=== PATIENT | female | born 1980 | race Caucasian/White ===

== ENCOUNTER 2019-04-14 20:17 | Emergency (ER) | payer OTHER ==
--- NOTE | 2019-04-14 20:27 | EDM.PDOC ---
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 She had an in office ultrasound which she says documented the gestational sac at 3-4 weeks age rather than the 9 weeks per her last periods and there was some concern about the not progressing normally. She says she was having spotting of blood at that time and over the last 2 days has had which she defines as a regular flow of bleeding similar to her. Using 3-4 pads a day. Today the cramping increased which is diffuse in the pelvis and she has used 8 pads and is passing more blood than usual. She is concerned and is here for evaluation. She has had some diarrhea today but no vomiting and has had no urinary complaints. She has no chest pain shortness of breath dizziness or lightheadedness. The patient was seen yesterday at [facility] and had blood work done here which I reviewed. Her blood type is A+ her progesterone was 7.32 and her serum quantitative hCG was 3474. The patient was called about these results and was started on progesterone due to the low progesterone level. The patient says that her cervix was closed yesterday on evaluation Review of systems: As per history of present illness and below otherwise all systems reviewed and negative. Past medical history: As per history of present illness and as reviewed below otherwise noncontributory. Surgical history: As per history of present illness and as reviewed below otherwise noncontributory. Social history: No reported history of drug or alcohol abuse. Family history: As per history of present illness and as reviewed below otherwise noncontributory. Physical exam: General well-developed well-nourished nontoxic female whose vital signs are noted by me and seems somewhat anxious in the room and nervous. HEENT: Atraumatic, normocephalic, pupils reactive, negative for conjunctival pallor or scleral icterus, mucous membranes moist, throat clear, neck supple, nontender, trachea midline. Lungs: Clear to auscultation, breath sounds equal bilaterally, chest nontender. Heart: S1S2, regular rate and rhythm no overt murmurs Abdomen: Soft, nondistended, mild diffuse lower abdominal/pelvic tenderness without rebound or guarding Negative for masses or hepatosplenomegaly. Negative for costovertebral tenderness. Pelvis: Stable nontender. Genitourinary: Genitalia are within normal limits and there is pooling of blood in the vaginal vault. The cervix is open with an external os of about 1 cm and there is tissue at the opening. I attempted to tease this out and it was very adherent. Uterus is small bulky and approximate 6 week size and nontender Rectal: Deferred. Extremities: Atraumatic, negative for cords or calf pain. Neurovascular unremarkable. Neuro: Awake, alert, oriented. Cranial nerves II through XII unremarkable. Cerebellum unremarkable. Motor and sensory unremarkable throughout. Exam nonfocal. 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 Oliveira at 2049 8 PM. She would like a pelvic ultrasound done even though she knows the exam findings. Patient is aware of this and we will get this done and recontact the provider Today's quantitative beta hCG is 1382 which is significantly down from the one done yesterday 0: Dr. Oliveira is here in the emergency department seeing the patient. Please see her note for care and plan 2300: Cytotec was ordered by me per Dr Oliveira 's direction She has been given prescriptions by the provider for home and needs to call for a follow-up appointment in 1 week. Impression: Incomplete Definitive disposition and diagnosis as appropriate pending reevaluation and review of above. abd Pain Score (Numeric/FACES): 3 - Related Data Allergies Allergy/AdvReac Type Severity Reaction Status Date / Time No Known Allergies Allergy Verified 11/21/14 14:07 Home Meds: Home Meds Norethindrone-Ethinyl Estrad [Dasetta - Tablet] 1 tab PO DAILY 11/21/14 [ History] Venlafaxine [Effexor] 225 mg PO DAILY 11/21/14 [History] traZODone 0.25 tab PO DAILY 11/21/14 [History] valACYclovir [Valtrex] 1 tab PO DAILY 11/21/14 [History] Acetaminophen/HYDROcodone [[place] 325-5 MG] 1 tab PO Q4H PRN #20 tab 11/23/14 [Rx ] ED ROS GENERAL - Review of Systems Review Of Systems: ROS reveals no pertinent complaints other than HPI. ED EXAM, GENERAL - Physical Exam Exam: See Below (See dictation) Course - Vital Signs Last Recorded V/S: Last Vital Signs Temp 36.8 C 04/14/19 20:30 Pulse 110 H 04/14/19 20:30 Resp 16 04/14/19 20:30 BP 149/104 H 04/14/19 20:30 Pulse Ox 96 04/14/19 20:30 - Orders/Labs/Meds Orders: Active Orders 24 hr Category Date Time Status Notify Provider Consults [RC] ASDIRECTED Care 04/14/19 22:52 Active Consult to Physician [CONS] Stat Cons 04/14/19 22:52 Active Labs: Laboratory Tests 04/14/19 04/14/19 Range/Units 20:55 20:55 WBC 11.36 H (4.0-11.0) K/uL RBC 4.27 L (4.30-5.90) M/uL Hgb 13.1 (12.0-16.0) g/dL Hct 38.6 (36.0-46.0) % MCV 90.4 (80.0-98.0) fL MCH 30.7 (27.0-32.0) pg MCHC 33.9 (31.0-37.0) g/dL RDW Std Deviation 44.0 (28.0-62.0) fl RDW Coeff of Bishop 13 (11.0-15.0) % Plt Count 336 (150-400) K/uL MPV 10.10 (7.40-12.00) fL Neut % (Auto) 66.4 (48.0-80.0) % Lymph % (Auto) 26.6 (16.0-40.0) % Pope % (Auto) 5.5 (0.0-15.0) % Eos % (Auto) 1.1 (0.0-7.0) % Baso % (Auto) 0.4 (0.0-1.5) % Neut # (Auto) 7.6 H (1.4-5.7) K/uL Lymph # (Auto) 3.0 H (0.6-2.4) K/uL Pope # (Auto) 0.6 (0.0-0.8) K/uL Eos # (Auto) 0.1 (0.0-0.7) K/uL Baso # (Auto) 0.0 (0.0-0.1) K/uL Nucleated RBC % 0.0 /100WBC Nucleated RBCs # 0 K/uL HCG, Quant 1382.0 mIU/mL Meds: Medications Discontinued Medications Generic Name Dose Route Start Last Admin Trade Name Freq PRN Reason Stop Dose Admin Methylergonovine Maleate 0.2 mg 04/14/19 23:09 Methergine PO 04/14/19 23:10 ONETIME ONE Misoprostol 800 mcg 04/14/19 23:01 Cytotec VAG 04/14/19 23:02 ONETIME ONE Departure - Departure Time of Disposition: 23:26 Disposition: Home, Self-Care 01 Condition: Good Clinical Impression: Incomplete - Discharge Information Referrals: Paloma Cota MD [Primary Care Provider] - Forms: ED Department Discharge Additional Instructions: The following information is given to patients seen in the emergency department who are being discharged to home. This information is to outline your options for follow-up care. We provide all patients seen in our emergency department with a follow-up referral. The need for follow-up, as well as the timing and circumstances, are variable depending upon the specifics of your emergency department visit. If you don't have a primary care physician on staff, we will provide you with a referral. We always advise you to contact your personal physician following an emergency department visit to inform them of the circumstance of the visit and for follow-up with them and/or the need for any referrals to a consulting specialist. The emergency department will also refer you to a specialist when appropriate. This referral assures that you have the opportunity for followup care with a specialist. All of these measure are taken in an effort to provide you with optimal care, which includes your followup. Under all circumstances we always encourage you to contact your private physician who remains a resource for coordinating your care. When calling for followup care, please make the office aware that this follow-up is from your recent emergency room visit. If for any reason you are refused follow-up, please contact the [facility] emergency department at and ask to speak to the emergency department charge nurse. [address] [address] Please fill-in take all prescriptions given to you by Dr. Oliveira and please call the clinic first thing in the morning to reschedule your current appointment for an appointment with your provider. Push hydration rest and return to ER as needed and as discussed - My Orders Last 24 Hours: My Active Orders 04/14/19 22:52 Notify Provider Consults [RC] ASDIRECTED Consult to Physician [CONS] Stat - Assessment/Plan Last 24 Hours: My Active Orders 04/14/19 22:52 Notify Provider Consults [RC] ASDIRECTED Consult to Physician [CONS] Stat
[2019-04-14] MEDS ORDERED: Misoprostol 200 MCG Tab PO ONE (22:10)
--- NOTE | 2019-04-14 22:51 | US ---
INDICATION: Spotting and heavy bleeding. . TECHNIQUE: Ultrasound OB pelvis transvaginal. Real-time villarreal-scale imaging of the pelvis was performed. COMPARISON: None FINDINGS: Uterus is anteverted measures 10.0 x 5.2 x 5.3 centimeters. Endometrial thickness is 11 millimeters. At the cervix and lower uterine segment there is a heterogeneous collection measuring 5.7 x 2.0 x 2.9 centimeters although a definite yolk sac or embryo is not seen. Small free fluid in the pelvic cul-de-sac. Maternal left ovary measures 2.6 x 1.5 x 1.9 centimeters with normal blood flow. Maternal right ovary measures 1.2 x 2.3 x 1.1 centimeters with normal blood flow. IMPRESSION: 1. No definite intrauterine gestational sac identified although a heterogeneous collection is identified at the lower uterine segment extending into the cervix measuring up to 5.7 centimeters. Question whether this represents a miscarriage in progress. Correlation with serial quantitative HCG suggested. In clinically confusing cases, follow-up ultrasound in 10-14 days may be helpful to reassess. Dictated by Jose A Fishman MD @ Apr 14 2019 10:45PM Signed by Dr. Jose A Fishman @ Apr 14 2019 10:49PM
[2019-04-14] MEDS ORDERED: Misoprostol 50 MCG (1/2 of 100 MCG) Tab VAG ONE (23:01)
[2019-04-14] MEDS ORDERED: Methylergonovine 0.2 MG Tab PO ONE (23:09)
--- NOTE | 2019-04-14 23:21 | EDM.PDOC ---
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 4 weeks by yesterday's USS , Patient was seen in the clinic yesterday due to complains of vaginal spotting. USS done showed IUP with yolk sac , no pole. However today patient states her bleeding has increased and she is using about 1 pad an hour. She had an USS done in the ER which showed no IUP and heterogenous collection in the KATHRYN extending into the cervix. She is A positive . BHCG is 1382 decreased from 3474 Review of systems: As per history of present illness and below otherwise all systems reviewed and negative. Past medical history: As per history of present illness and as reviewed below otherwise noncontributory. Surgical history: As per history of present illness and as reviewed below otherwise noncontributory. Social history: No reported history of drug or alcohol abuse. Family history: As per history of present illness and as reviewed below otherwise noncontributory. Physical exam: General well-developed well-nourished nontoxic female whose vital signs are noted by me and seems somewhat anxious in the room and nervous. HEENT: Atraumatic, normocephalic, pupils reactive, negative for conjunctival pallor or scleral icterus, mucous membranes moist, throat clear, neck supple, nontender, trachea midline. Lungs: Clear to auscultation, breath sounds equal bilaterally, chest nontender. Heart: S1S2, regular rate and rhythm no overt murmurs Abdomen: Soft, nondistended, mild diffuse lower abdominal/pelvic tenderness without rebound or guarding Negative for masses or hepatosplenomegaly. Negative for costovertebral tenderness. Pelvis: Stable nontender. Genitourinary: Genitalia are within normal limits and there is pooling of blood in the vaginal vault. The cervix is open with an external os of about 1 cm and there is tissue at the opening. POC was removed from the os as a whole with a ring forcep and sent for pathology. no cervical bleeding noted afterward Rectal: Deferred. Extremities: Atraumatic, negative for cords or calf pain. Neurovascular unremarkable. Neuro: Awake, alert, oriented. Cranial nerves II through XII unremarkable. Cerebellum unremarkable. Motor and sensory unremarkable throughout. Exam nonfocal. A/p Complete , however cannot rule out incomplete at this time Plan I offered patient suction d & c today to ensure uterus is empty vs medical management with cytotec. i informed her of the advantages and disadvantages of each mode of management. Patient declines a D & C and will prefer treatment with cytotec she understands that she may still need a d & C if her symptoms still persist. I will give cytotec 800mcg i will also give methergine 0.2mg q 8hrs X 1 day Doxycycline 100mg bid X 7 days Patient to follow up in the clinic in 1 week , she will need BHCG and USS . Informed that if she has persistent symptoms she will need to follow up before then. abd Pain Score (Numeric/FACES): 3 - Related Data Allergies Allergy/AdvReac Type Severity Reaction Status Date / Time No Known Allergies Allergy Verified 11/21/14 14:07 Home Meds: Home Meds Venlafaxine [Effexor] 225 mg PO DAILY 11/21/14 [History] traZODone 0.25 tab PO DAILY 11/21/14 [History] valACYclovir [Valtrex] 1 tab PO DAILY 11/21/14 [History] Acetaminophen/HYDROcodone [[place] 325-5 MG] 1 tab PO Q4H PRN #20 tab 11/23/14 [Rx ] Doxycycline [Vibramycin] 100 mg PO BID 7 Days #14 tab 04/14/19 [Rx] Methylergonovine Maleate [Methergine] 0.2 mg PO Q8HR 1 Days #3 tablet 04/14/19 [ Rx] Past Medical History HEENT History: Reports: Other (See Below) 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: Psychiatric History: Reports: Depression - Infectious Disease History Infectious Disease History: Reports: Chicken Pox - Past Surgical History HEENT Surgical History: Reports: Oral Surgery Female Surgical History: Reports: LEEP Social & Family History - Family History Family Medical History: Noncontributory - Tobacco Use Smoking Status *Q: Never Smoker - Caffeine Use Caffeine Use: Reports: Coffee, Tea - Recreational Drug Use Recreational Drug Use: No ED ROS GENERAL - Review of Systems Review Of Systems: See Below ED EXAM - Physical Exam Exam: See Below Exam Limited By: No Limitations Course - Vital Signs Last Recorded V/S: Last Vital Signs Temp 36.8 C 04/14/19 20:30 Pulse 110 H 04/14/19 20:30 Resp 16 04/14/19 20:30 BP 149/104 H 04/14/19 20:30 Pulse Ox 96 04/14/19 20:30 - Orders/Labs/Meds Orders: Active Orders 24 hr Category Date Time Status Notify Provider Consults [RC] ASDIRECTED Care 04/14/19 22:52 Active Consult to Physician [CONS] Stat Cons 04/14/19 22:52 Active Labs: Laboratory Tests 04/14/19 04/14/19 Range/Units 20:55 20:55 WBC 11.36 H (4.0-11.0) K/uL RBC 4.27 L (4.30-5.90) M/uL Hgb 13.1 (12.0-16.0) g/dL Hct 38.6 (36.0-46.0) % MCV 90.4 (80.0-98.0) fL MCH 30.7 (27.0-32.0) pg MCHC 33.9 (31.0-37.0) g/dL RDW Std Deviation 44.0 (28.0-62.0) fl RDW Coeff of Bishop 13 (11.0-15.0) % Plt Count 336 (150-400) K/uL MPV 10.10 (7.40-12.00) fL Neut % (Auto) 66.4 (48.0-80.0) % Lymph % (Auto) 26.6 (16.0-40.0) % Porter % (Auto) 5.5 (0.0-15.0) % Eos % (Auto) 1.1 (0.0-7.0) % Baso % (Auto) 0.4 (0.0-1.5) % Neut # (Auto) 7.6 H (1.4-5.7) K/uL Lymph # (Auto) 3.0 H (0.6-2.4) K/uL Porter # (Auto) 0.6 (0.0-0.8) K/uL Eos # (Auto) 0.1 (0.0-0.7) K/uL Baso # (Auto) 0.0 (0.0-0.1) K/uL Nucleated RBC % 0.0 /100WBC Nucleated RBCs # 0 K/uL HCG, Quant 1382.0 mIU/mL Meds: Medications Discontinued Medications Generic Name Dose Route Start Last Admin Trade Name Freq PRN Reason Stop Dose Admin Methylergonovine Maleate 0.2 mg 04/14/19 23:09 Methergine PO 04/14/19 23:10 ONETIME ONE Misoprostol 800 mcg 04/14/19 23:01 Cytotec VAG 04/14/19 23:02 ONETIME ONE Departure - Departure Time of Disposition: 22:35 Disposition: Home, Self-Care 01 Clinical Impression: Complete - Discharge Information *PRESCRIPTION DRUG MONITORING PROGRAM REVIEWED*: Not Applicable *COPY OF PRESCRIPTION DRUG MONITORING REPORT IN PATIENT MARGARET: Not Applicable Prescriptions: Methylergonovine Maleate [Methergine] 0.2 mg PO Q8HR 1 Days #3 tablet Doxycycline [Vibramycin] 100 mg PO BID 7 Days #14 tab Instructions: Miscarriage, [id number] Referrals: Paloma Cota MD [Primary Care Provider] - Forms: ED Department Discharge
[2019-04-14] MEDS ORDERED: Doxycycline 100 MG Cap PO ONE (23:39)
[2019-04-14 23:46] VITALS: BP 126/87
== END 2019-04-14 23:53 | disposition home or self-care (01) ==
LOC: MW.ED 20:17
DX: O03.9 Complete or unspecified spontaneous abortion without complication (principal); F32.9 Major depressive disorder, single episode, unspecified; Z79.899 Other long term (current) drug therapy
CPT/HCPCS: 36415; 76801; 84702; 85025; 99284; A9270; 99283

== ENCOUNTER 2020-02-09 17:13 | Inpatient (IN) | payer MEDICAID, OTHER ==
[2020-02-09] MEDS ORDERED: Misoprostol 25 MCG (1/4 of 100 MCG) Tab VAG PRN (17:33)
[2020-02-09] MEDS ORDERED: Ondansetron 4 MG/2 ML SDV IVPUSH PRN (17:33)
[2020-02-09] MEDS ORDERED: Terbutaline 1 MG/ML SDV SUBCUT PRN (17:33)
[2020-02-09] MEDS ORDERED: Lactated Ringers 1,000 ML IV ONE (18:00)
[2020-02-09 19:04] LABS: BLOOD UREA NITROGEN,BUN 10 mg/dL (7.0-18.0); CARBON DIOXIDE,CO2 22.7 mmol/L (21.0-32.0); CHLORIDE,CL 105 mmol/L (98-107); GLUCOSE RANDOM 83 mg/dL (74-106); POTASSIUM,K 4.2 mmol/L (3.5-5.1); SODIUM,NA 140 mmol/L (136-145)
[2020-02-09] MEDS: Misoprostol 25 MCG (1/4 of 100 MCG) Tab VAG PRN (20:27)
[2020-02-10] MEDS ORDERED: Misoprostol 50 MCG (1/2 of 100 MCG) Tab VAG SCH ×2 (02:30→12:30)
[2020-02-10] MEDS ORDERED: Misoprostol 25 MCG (1/4 of 100 MCG) Tab VAG PRN (02:30)
[2020-02-10] MEDS: Misoprostol 25 MCG (1/4 of 100 MCG) Tab VAG PRN ×3 (03:33→12:50)
[2020-02-10] MEDS ORDERED: Misoprostol 25 MCG (1/4 of 100 MCG) Tab ONE (12:44)
[2020-02-10] MEDS: Oxytocin/0.9 % Sodium Chloride 30 UNIT/500 ML BAG IV SCH ×2 (16:40→22:04)
[2020-02-10] MEDS ORDERED: Lactated Ringers 1,000 ML IV SCH (17:00)
--- NOTE | 2020-02-10 18:52 | PCM.SN ---
- Free Text/Narrative Note: Called in to place an epidural for a laboring patient. Arrived at 1840. Talked to nurse. Patient was actively pushing and baby with eminent delivery. Patient declined epidural placement. Notified nursing staff.
[2020-02-10] MEDS ORDERED: Lidocaine 1% 50 ML MDV ONE (19:12)
[2020-02-10] MEDS ORDERED: oxyCODONE 5 MG Tab PO PRN (19:47)
[2020-02-10] MEDS ORDERED: Acetaminophen 500 MG Tab PO PRN ×2 (19:47)
[2020-02-10] MEDS ORDERED: Benzocaine/Menthol 20%-0.5% Spray 78 GM Cannister TOP PRN (19:47)
[2020-02-10] MEDS ORDERED: Ibuprofen 800 MG Tab PO PRN (19:47)
[2020-02-10] MEDS ORDERED: Bisacodyl 10 MG Supp RECTAL PRN (19:47)
[2020-02-10] MEDS ORDERED: Ibuprofen 400 MG Tab PO PRN (19:47)
[2020-02-10] MEDS ORDERED: Witch Hazel Medicated Pads 40/Jar TOP PRN (19:47)
[2020-02-10] MEDS ORDERED: Lanolin 100% Cream 7 GM Tube TOP PRN (19:47)
[2020-02-10] MEDS ORDERED: Docusate Sodium 100 MG Cap PO PRN (19:47)
--- NOTE | 2020-02-10 19:47 | PCM.DEL ---
L & D Note - General Info Date of Service: 02/10/20 Mother's Due Date: 02/20/20 - Delivery Note Labor: Augmented by Oxytocin Cervical Ripening Method: Misoprostil, Other (see below) (balloon) Delivery Outcome: Livebirth Infant Delivery Method: Spontaneous Vaginal Delivery-Single Presentation: Left Occiput Anterior (MAYELA) Nuchal Cord: Present (X3) Prep: Other Anesthesia Type: None Anesthetic: Lidocaine (Xylocaine) 0.5% Plain Local Anesthetic Volume: Other (20 mol) Amniotic Fluid Description: Clear Episiotomy Type: None Laceration: 2nd Degree Suture type: Vicryl Suture size: 3-0 Placenta: Intact, Spontaneous Cord: 3 Vessels Estimated Blood Loss: 300 Resuscitation Needed: No [place]: Suctioned Score 1 min: 9 Score 5 min: 9 Delivery Comments (Free Text/Narrative):: Liveborn male 9/9 weight 3460 grams. - General Info Date of Service: 02/10/20 - Patient Data Weight - Most Recent: 125.191 kg Med Orders - Current: Current Medications Oxytocin/Sodium Chloride (Oxytocin 30 Unit/500 Ml-Ns) 30 unit in 500 mls @ 2 mls/hr IV TITRATE ALEXIS; Protocol Last Admin: 02/10/20 16:40 Dose: 2 munits/min, 2 mls/hr Lactated Ringer's (Ringers, Lactated) 1,000 mls @ 125 mls/hr IV ASDIRECTED ALEXIS Last Admin: 02/10/20 17:03 Dose: 125 mls/hr Misoprostol (Cytotec) 25 mcg VAG ONETIME PRN PRN Reason: Cervical Ripening Last Admin: 02/10/20 12:50 Dose: 25 mcg Misoprostol (Cytotec) 25 mcg VAG Q4H ALEXIS Ondansetron HCl (Zofran) 4 mg IVPUSH Q4H PRN PRN Reason: Nausea/Vomiting Terbutaline Sulfate (Brethine) 0.25 mg SUBCUT ASDIRECTED PRN PRN Reason: Tacysystole Discontinued Medications Lactated Ringer's (Ringers, Lactated) 1,000 mls @ 999 mls/hr IV ONETIME ONE Stop: 02/09/20 19:00 Last Admin: 02/09/20 18:09 Dose: 999 mls/hr Lidocaine HCl (Xylocaine 1%) Confirm Administered Dose 50 ml .ROUTE .STK-MED ONE Stop: 02/10/20 19:13 Misoprostol (Cytotec) 25 mcg VAG Q6H PRN PRN Reason: Cervical Ripening Last Admin: 02/10/20 08:36 Dose: 25 mcg Misoprostol (Cytotec) Confirm Administered Dose 25 mcg .ROUTE .STK-MED ONE Stop: 02/10/20 12:45 - Problem List & Annotations (1) Transient hypertension of , with delivery, with current complication SNOMED Code(s): 396702346, 287208041 Code(s): O13.5 - GESTATNL HTN WITHOUT SIGNIFICANT PROTEIN, COMP THE PUERP Status: Acute Current Visit: Yes (2) Vaginal delivery SNOMED Code(s): 792606167 Code(s): O80 - ENCOUNTER FOR FULL-TERM UNCOMPLICATED DELIVERY Status: Acute Current Visit: Yes - Problem List Review Problem List Initiated/Reviewed/Updated: Yes - My Orders Last 24 Hours: My Active Orders 02/10/20 12:30 miSOPROStoL [Cytotec] 25 mcg VAG Q4H 02/10/20 17:00 Lactated Ringers [Ringers, Lactated] 1,000 ml IV ASDIRECTED 02/10/20 Breakfast Regular Diet [DIET]
--- NOTE | 2020-02-10 20:42 | OR ---
SURGEON: Paloma Cota M.D. DATE OF PROCEDURE: 02/10/2020 PREOPERATIVE DIAGNOSES: 1. A 38 and 4/7 week intrauterine . 2. Gestational hypertension. 3. Advanced maternal age. POSTOPERATIVE DIAGNOSES: 1. A 38 and 4/7 week intrauterine . 2. Gestational hypertension. 3. Advanced maternal age. PROCEDURES: 1. Cytotec and Pitocin induction of labor. 2. Term spontaneous vaginal delivery. 3. Repair of second-degree laceration. ANESTHESIA: None. ESTIMATED BLOOD LOSS: Less than 300 mL. FINDINGS: Liveborn male, scores of 9 and 9, weighing 3460 g. Placenta spontaneous, Schultze intact with 3 vessels. Second-degree perineal laceration repaired. COMPLICATIONS: None known. DISPOSITION: Mother and baby are in LDR in good condition. BRIEF HISTORY: This is a 39-year-old female, she is G3, P0-0-2-0. She presents at 38 and 4/7 weeks' gestation. She has had elevated blood pressures for the last three weeks in clinic. Negative preeclamptic evaluations. She is now 38 and 3/7 weeks' gestation, presents with elevated blood pressures. Denies headache, visual changes. Preeclamptic labs were negative. Due to persistently elevated blood pressures at term, decision was made to proceed with induction of labor. She was admitted to Labor and Delivery. She received 4 doses of Cytotec. At this point, her cervix was 1 cm, 80%. Balloon was placed at approximately 3:30 p.m. Pitocin was initiated up to a maximum of 2 milliunits per minute and at approximately 6:30 p.m., the balloon was expelled. The patient requested an epidural, however, shortly thereafter, she was complete. DESCRIPTION OF PROCEDURE: With the patient in dorsal lithotomy position, the patient pushed over a 40 minute time period to a 5+ station, at which time the head was delivered spontaneously and atraumatically over the perineum with support with subsequent delivery of the 's shoulders and body without any difficulty. The was bulb suctioned by nose and mouth, and after the cord had ceased to pulsate, it was doubly clamped and cut. The infant was handed to the mother in the presence of the nurse attending delivery. The infant was a liveborn female, scores of 9 and 9, weighing 3460 g. Cord blood was collected for cord ABGs as well as routine cord blood sampling. Pitocin was initiated after delivery of the infant to assist with delivery of the placenta, which was delivered spontaneously [place] intact, with 3 vessels. Upon inspection of the pelvis and perineum, there were no periurethral, vaginal sidewall, cervical, or rectal lacerations. There was a second-degree perineal laceration. A 20 mL of 1% lidocaine was injected locally and after documentation of adequate analgesia, 3 [id number] sutures were placed in the deep perineal tissue using 3-0 Vicryl. A running lock suture of 3-0 Vicryl was utilized to reapproximate the vaginal mucosa. A deep running suture of the same for the perineum, and a running subcuticular suture for the skin. Final sponge, needle, and instrument counts were correct. There were no known complications. Mother and baby are in LDR in good condition. Instrument count was also correct. CODIE / MANDY /[id number]
--- NOTE | 2020-02-11 07:41 | PCM.PNPP ---
- General Info Date of Service: 02/11/20 Functional Status: Reports: Pain Controlled, Tolerating Diet, Ambulating, Urinating - Review of Systems General: Reports: No Symptoms HEENT: Reports: No Symptoms Pulmonary: Reports: No Symptoms Cardiovascular: Reports: No Symptoms Gastrointestinal: Reports: No Symptoms Genitourinary: Reports: No Symptoms Musculoskeletal: Reports: No Symptoms Skin: Reports: No Symptoms Neurological: Reports: No Symptoms Psychiatric: Reports: No Symptoms - Patient Data Vital Signs - Most Recent: Last Vital Signs Temp 36.9 C 02/11/20 04:00 Pulse 110 H 02/11/20 04:00 Resp 18 02/11/20 04:00 BP 138/85 02/11/20 04:00 Pulse Ox 96 02/11/20 04:00 Weight - Most Recent: 125.191 kg Lab Results - Last 24 Hours: Laboratory Results - last 24 hr 02/10/20 02/11/20 Range/Units 19:20 04:10 Hgb 11.1 L (12.0-16.0) g/dL Hct 33.9 L (36.0-46.0) % Cord ABG pH 7.145 L (7.18-7.38) Cord ABG Base Excess -10 (-10--2) Cord VBG pH 7.261 (7.25-7.45) Cord VBG Base Excess -10 (-10--2) Med Orders - Current: Current Medications Acetaminophen (Tylenol Extra Strength) 500 mg PO Q4H PRN PRN Reason: Pain Acetaminophen (Tylenol Extra Strength) 1,000 mg PO Q4H PRN PRN Reason: Pain Benzocaine/Menthol (Dermoplast Pain Relief 20%-0.5% [place]) 78 gm TOP ASDIRECTED PRN PRN Reason: Perineal Comfort Measure Last Admin: 02/10/20 23:29 Dose: 78 gm Bisacodyl (Dulcolax) 10 mg RECTAL ONETIME PRN PRN Reason: Constipation Docusate Sodium (Colace) 100 mg PO BID PRN PRN Reason: Constipation Emollient Ointment (Lansinoh Hpa) 0 gm TOP ASDIRECTED PRN PRN Reason: Sore Nipples Last Admin: 02/10/20 23:28 Dose: 7 mg Ibuprofen (Motrin) 400 mg PO Q4H PRN PRN Reason: Pain Ibuprofen (Motrin) 800 mg PO Q6H PRN PRN Reason: Pain Non-Formulary Medication (Venlafaxine) 225 mg PO DAILY [facility] Oxycodone HCl (Oxycodone) 5 mg PO Q2H PRN PRN Reason: Pain Witch Bobby (Tucks) 1 pad TOP ASDIRECTED PRN PRN Reason: comfort care Last Admin: 02/10/20 23:30 Dose: 1 pad Discontinued Medications Oxytocin/Sodium Chloride (Oxytocin 30 Unit/500 Ml-Ns) 30 unit in 500 mls @ 2 mls/hr IV TITRATE [facility]; Protocol Last Admin: 02/10/20 22:04 Dose: 333 munits/min, 333 mls/hr Lactated Ringer's (Ringers, Lactated) 1,000 mls @ 999 mls/hr IV ONETIME ONE Stop: 02/09/20 19:00 Last Admin: 02/09/20 18:09 Dose: 999 mls/hr Lactated Ringer's (Ringers, Lactated) 1,000 mls @ 125 mls/hr IV ASDIRECTED [facility] Last Admin: 02/10/20 17:03 Dose: 125 mls/hr Lidocaine HCl (Xylocaine 1%) Confirm Administered Dose 50 ml .ROUTE .STK-MED ONE Stop: 02/10/20 19:13 Misoprostol (Cytotec) 25 mcg VAG ONETIME PRN PRN Reason: Cervical Ripening Last Admin: 02/10/20 12:50 Dose: 25 mcg Misoprostol (Cytotec) 25 mcg VAG Q6H PRN PRN Reason: Cervical Ripening Last Admin: 02/10/20 08:36 Dose: 25 mcg Misoprostol (Cytotec) 25 mcg VAG Q4H [facility] Misoprostol (Cytotec) Confirm Administered Dose 25 mcg .ROUTE .STK-MED ONE Stop: 02/10/20 12:45 Ondansetron HCl (Zofran) 4 mg IVPUSH Q4H PRN PRN Reason: Nausea/Vomiting Terbutaline Sulfate (Brethine) 0.25 mg SUBCUT ASDIRECTED PRN PRN Reason: Tacysystole - Interaction Infant Disposition, : [place] in Room with Family Interaction: Holding Infant Infant Feeding: Breastfed ; Nursed Well Support Person: - Recovery Exam Fundal Tone: Firm Fundal Level: 2 Fingerbreadths Below Umbilicus Fundal Placement: Midline Lochia Amount: Moderate Lochia Color: Rubra/Red Episiotomy/Laceration: Approximated Bladder Status: Voiding - Exam General: Alert, Oriented HEENT: Pupils Equal Neck: Supple Lungs: Normal Respiratory Effort GI/Abdominal Exam: Soft, Non-Tender, No Distention, No Mass Extremities: Non-Tender, No Pedal Edema Skin: Warm, Dry, Intact Neurological: No New Focal Deficit Psy/Mental Status: Alert, Normal Affect, Normal Mood - Problem List & Annotations (1) Transient hypertension of , with delivery, with current complication SNOMED Code(s): 527967179, 629694631 Code(s): O13.5 - GESTATNL HTN WITHOUT SIGNIFICANT PROTEIN, COMP THE PUERP Status: Acute Current Visit: Yes (2) Vaginal delivery SNOMED Code(s): 402385620 Code(s): O80 - ENCOUNTER FOR FULL-TERM UNCOMPLICATED DELIVERY Status: Acute Current Visit: Yes - Problem List Review Problem List Initiated/Reviewed/Updated: Yes - My Orders Last 24 Hours: My Active Orders 02/10/20 19:47 Patient Status [ADT] Routine May Shower [RC] ASDIRECTED Up ad Florecita [RC] ASDIRECTED Vital Signs [RC] PER UNIT ROUTINE Acetaminophen [Tylenol Extra Strength] 1,000 mg PO Q4H PRN Acetaminophen [Tylenol Extra Strength] 500 mg PO Q4H PRN Benzocaine/Menthol [Dermoplast Pain Relief 20%-0.5% [place]] 78 gm TOP ASDIRECTED PRN Docusate Sodium [Colace] 100 mg PO BID PRN Ibuprofen [Motrin] 400 mg PO Q4H PRN Ibuprofen [Motrin] 800 mg PO Q6H PRN Lanolin [Lansinoh HPA] See Dose Instructions TOP ASDIRECTED PRN bisacodyL [Dulcolax] 10 mg RECTAL ONETIME PRN oxyCODONE 5 mg PO Q2H PRN witch Bobby [Tucks] 1 pad TOP ASDIRECTED PRN Assess Lochia [WOMSER] Per Unit Routine Assess Uterine Involution [WOMSER] Per Unit Routine Peripheral IV Discontinue [OM.PC] Routine Resuscitation Status Routine 02/10/20 19:48 Perineal Care [OM.PC] Per Unit Routine 02/11/20 07:36 Ready for Discharge [RC] PER UNIT ROUTINE 02/11/20 09:00 Venlafaxine 225 mg PO DAILY 02/11/20 Breakfast Regular Diet [DIET] - Assessment Assessment:: PPD#1 after , stable minimal lochia, tolerating regular diet. BP improved, will monitor if stable today, discharge this evening. - Plan Plan:: Discharge instructions reviewed.
[2020-02-11] MEDS: Venlafaxine 75 MG Cap.ER PO SCH (10:50)
[2020-02-12] MEDS: Venlafaxine 75 MG Cap.ER PO SCH (08:14)
[2020-02-12] MEDS ORDERED: Labetalol 100 MG Tab PO SCH (10:45)
--- NOTE | 2020-02-12 11:24 | PCM.PNPP ---
- General Info Date of Service: 02/12/20 Functional Status: Reports: Pain Controlled, Tolerating Diet, Ambulating, Urinating - Review of Systems General: Denies: Fever, Weakness, Fatigue Pulmonary: Denies: Shortness of Breath Cardiovascular: Denies: Chest Pain, Palpitations, Lightheadedness Gastrointestinal: Denies: Abdominal Pain, Nausea, Vomiting Genitourinary: Denies: Flank Pain Musculoskeletal: Reports: No Symptoms Skin: Reports: No Symptoms Neurological: Reports: No Symptoms Psychiatric: Reports: No Symptoms - General Info Date of Service: 02/12/20 - Patient Data Vital Signs - Most Recent: Last Vital Signs Temp 36.2 C 02/12/20 08:24 Pulse 95 02/12/20 08:24 Resp 18 02/12/20 08:24 BP 142/77 H 02/12/20 08:24 Pulse Ox 97 02/12/20 08:24 Weight - Most Recent: 125.191 kg I&O - Last 24 Hours: Intake & Output 02/11/20 02/12/20 02/12/20 22:59 06:59 14:59 Intake Total 1200 Output Total 900 Balance 300 Med Orders - Current: Current Medications Acetaminophen (Tylenol Extra Strength) 500 mg PO Q4H PRN PRN Reason: Pain Acetaminophen (Tylenol Extra Strength) 1,000 mg PO Q4H PRN PRN Reason: Pain Benzocaine/Menthol (Dermoplast Pain Relief 20%-0.5% [place]) 78 gm TOP ASDIRECTED PRN PRN Reason: Perineal Comfort Measure Last Admin: 02/10/20 23:29 Dose: 78 gm Bisacodyl (Dulcolax) 10 mg RECTAL ONETIME PRN PRN Reason: Constipation Docusate Sodium (Colace) 100 mg PO BID PRN PRN Reason: Constipation Last Admin: 02/12/20 08:13 Dose: 100 mg Emollient Ointment (Lansinoh Hpa) 0 gm TOP ASDIRECTED PRN PRN Reason: Sore Nipples Last Admin: 02/10/20 23:28 Dose: 7 mg Ibuprofen (Motrin) 400 mg PO Q4H PRN PRN Reason: Pain Ibuprofen (Motrin) 800 mg PO Q6H PRN PRN Reason: Pain Last Admin: 02/12/20 08:12 Dose: 800 mg Labetalol HCl (Normodyne) 100 mg PO BID [facility] Oxycodone HCl (Oxycodone) 5 mg PO Q2H PRN PRN Reason: Pain Venlafaxine HCl (Effexor Xr) 225 mg PO DAILY [facility] Last Admin: 02/12/20 08:14 Dose: Not Given Amber Mcneill (Tucks) 1 pad TOP ASDIRECTED PRN PRN Reason: comfort care Last Admin: 02/10/20 23:30 Dose: 1 pad Discontinued Medications Oxytocin/Sodium Chloride (Oxytocin 30 Unit/500 Ml-Ns) 30 unit in 500 mls @ 2 mls/hr IV TITRATE [facility]; Protocol Last Admin: 02/10/20 22:04 Dose: 333 munits/min, 333 mls/hr Lactated Ringer's (Ringers, Lactated) 1,000 mls @ 999 mls/hr IV ONETIME ONE Stop: 02/09/20 19:00 Last Admin: 02/09/20 18:09 Dose: 999 mls/hr Lactated Ringer's (Ringers, Lactated) 1,000 mls @ 125 mls/hr IV ASDIRECTED [facility] Last Admin: 02/10/20 17:03 Dose: 125 mls/hr Lidocaine HCl (Xylocaine 1%) Confirm Administered Dose 50 ml .ROUTE .STK-MED ONE Stop: 02/10/20 19:13 Misoprostol (Cytotec) 25 mcg VAG ONETIME PRN PRN Reason: Cervical Ripening Last Admin: 02/10/20 12:50 Dose: 25 mcg Misoprostol (Cytotec) 25 mcg VAG Q6H PRN PRN Reason: Cervical Ripening Last Admin: 02/10/20 08:36 Dose: 25 mcg Misoprostol (Cytotec) 25 mcg VAG Q4H [facility] Misoprostol (Cytotec) Confirm Administered Dose 25 mcg .ROUTE .STK-MED ONE Stop: 02/10/20 12:45 Ondansetron HCl (Zofran) 4 mg IVPUSH Q4H PRN PRN Reason: Nausea/Vomiting Terbutaline Sulfate (Brethine) 0.25 mg SUBCUT ASDIRECTED PRN PRN Reason: Tacysystole - Infant Interaction Infant Disposition, : in Room with Family Interaction: Holding Infant Infant Feeding: Breastfed ; Nursed Well Support Person: - Recovery Exam Fundal Tone: Firm Fundal Level: 1 Fingerbreadths Below Umbilicus Fundal Placement: Midline Lochia Amount: Scant Lochia Color: Rubra/Red Perineum Description: Other (see below) Other Perinuem Description: 2nd degree laceration - no swelling/bruising. Episiotomy/Laceration: Approximated Bladder Status: Voiding - Exam General: Alert, Oriented Lungs: Normal Respiratory Effort Cardiovascular: Regular Rate, Regular Rhythm GI/Abdominal Exam: Normal Bowel Sounds, Soft Extremities: Pedal Edema (trace). No: Елена's Sign Skin: Warm, Dry, Intact Neurological: No New Focal Deficit Psy/Mental Status: Alert, Normal Affect, Normal Mood - Problem List & Annotations (1) Transient hypertension of , with delivery, with current complication SNOMED Code(s): 934233123, 918752100 Code(s): O13.5 - GESTATNL HTN WITHOUT SIGNIFICANT PROTEIN, COMP THE PUERP Status: Acute Current Visit: Yes (2) Vaginal delivery SNOMED Code(s): 649226626 Code(s): O80 - ENCOUNTER FOR FULL-TERM UNCOMPLICATED DELIVERY Status: Acute Current Visit: Yes - Problem List Review Problem List Initiated/Reviewed/Updated: Yes - My Orders Last 24 Hours: My Active Orders 02/12/20 10:45 Labetalol [Normodyne] 100 mg PO BID 02/12/20 11:19 Ready for Discharge [RC] PER UNIT ROUTINE - Assessment Assessment:: PPD#2 after , stable minimal lochia, tolerating regular diet. - Plan Plan:: Blood pressures remain labile, with no severe readings. But are 140/80-90s repeatedly. Patient denies visual changes, headache. However, feel it is prudent to start a low dose antihypertensive and monitor. Begin labetalol 100 mg bid. Will allow discharge today, agrees to monitor at home and call if >140/ 90. Discharge instructions reviewed. Follow up at [facility] via telehealth ([facility]) next week for BP check. Then 6 week . Infection and bleeding warnings reviewed. Patient agrees to plan of care.
[2020-02-12 11:29] VITALS: BP 126/84; PULSE 97
== END 2020-02-12 13:15 | disposition home or self-care (01) | DRG 807 ==
LOC: MW.OB 17:13 → OBSVTOIN 02-10 19:47 → MW.OB 02-10 19:47
PROVIDERS: ADMIT Obstetrics & Gynecology; ATTEND Obstetrics & Gynecology
PROC: 3E0P7VZ Introduction of Hormone into Female Reproductive, Via Natural or Artificial Opening (ICD-10-PCS; principal; 2020-02-10)
PROC: 10E0XZZ Delivery of Products of Conception, External Approach (ICD-10-PCS; 2020-02-10)
PROC: 0KQM0ZZ Repair Perineum Muscle, Open Approach (ICD-10-PCS; 2020-02-10)
PROC: 3E033VJ Introduction of Other Hormone into Peripheral Vein, Percutaneous Approach (ICD-10-PCS; 2020-02-10)
DX: O13.4 Gestational [pregnancy-induced] hypertension without significant proteinuria, complicating childbirth (principal); Z37.0 Single live birth; Z3A.38 38 weeks gestation of pregnancy; O70.1 Second degree perineal laceration during delivery
CPT/HCPCS: 36415; 59025; 59200; 59409; 80053; 82803; 84550; 85014; 85018; 85025; 86850; 86900; 86901; A9270-GY; J2590; J7120